=== PATIENT | female | born 1945 | race Caucasian/White ===

== ENCOUNTER 2019-08-27 18:20 | Emergency (ER) | payer MEDICARE ==
--- NOTE | 2019-08-27 18:43 | Emergency Department Record ---
History of Present Illness - General Stated Complaint: SHORTNESS OF BREATH Time Seen by Provider: 08/27/19 18:24 Source: Patient Mode of Arrival: Ambulatory Limitations: No limitations - History of Present Illness Initial Comments: 73 yo female presents to ED for evaluation of shortness of breath symptoms for the past 1 week. Patient reports history of atrial fibrillation, reports no reoccurrence following her last ablation with TCI. Patient denies fevers, chills, or productive cough symptoms, daughter however is concerned about possible PE. Patient denies history of PE, calf swelling, pain, or lower extremity edema on examination. Patient denies chest discomfort symptoms as well. Patient does not take anticoagulation medications currently. MD Complaint: Shortness of breath Onset/Timin -: Week(s) Consistency: Intermittent Improves With: Nothing Worsens With: Nothing Known History Of: Other (Atrial fibrillation) Associated Symptoms: Denies other symptoms - Related Data Home Oxygen Therapy: No Home Medications Medication Instructions Recorded Confirmed Last Taken Aspirin [Adult Low Dose Aspirin EC] 81 mg PO DAILY 08/27/19 08/27/19 08/27/19 Calcium Carbonate/Vitamin D3 1 each PO DAILY 08/27/19 08/27/19 08/27/19 [Calcium 250-D Tablet] Fenofibrate Nanocrystallized 160 mg PO 08/27/19 08/27/19 [Fenofibrate] Fexofenadine HCl [Meggan Allergy] 180 mg PO 08/27/19 08/27/19 Fluticasone Propionate [Flonase 08/27/19 08/27/19 Allergy Relief] Levothyroxine Sodium [Synthroid] 125 mcg PO 08/27/19 08/27/19 Lisinopril [Zestril] 20 mg PO DAILY 08/27/19 08/27/19 08/27/19 Montelukast Sodium [Singulair] 10 mg PO QHS 08/27/19 08/27/19 08/27/19 Multivitamin [One Daily 1 each PO DAILY 08/27/19 08/27/19 08/27/19 Multivitamin] [place]-3 Fatty Acids/Fish Oil [Fish 08/27/19 08/27/19 Oil 1,000 mg Capsule] Omeprazole [Prilosec] 20 mg PO DAILY 08/27/19 08/27/19 08/27/19 Pramipexole Di-HCl [Mirapex] 0.5 mg PO 08/27/19 08/27/19 Ubidecarenone [Co Q-10] 200 mg PO 08/27/19 08/27/19 Allergies Allergy/AdvReac Type Severity Reaction Status Date / Time codeine Allergy HIVES Verified 08/27/19 18:49 Review of Systems Constitutional: Denies: Chills, Fever, Malaise, Night sweats Eyes: Denies: Eye discharge, Eye pain ENT: Denies: Congestion, Ear pain, Epistaxis Respiratory: Reports: Dyspnea. Denies: Cough, Stridor, Wheezes Cardiovascular: Denies: Chest pain, Dyspnea on exertion, Palpitations Endocrine: Denies: Fatigue, Heat or cold intolerance Gastrointestinal: Denies: Abdominal pain, Nausea, Vomiting Genitourinary: Denies: Incontinence, Retention Musculoskeletal: Denies: Arthralgia, Back pain Skin: Denies: Bruising, Change in color Neurological: Denies: Abnormal gait, Confusion, Headache, Tingling, Tremors Psychiatric: Denies: Anxiety Hematological/Lymphatic: Denies: Anemia, Blood Clots, Easy bleeding, Easy bruising Physical Exam - General General Appearance: Alert, Oriented x3, Cooperative, No acute distress Limitations: No limitations - Head Head exam: Atraumatic, Normocephalic, Normal inspection Head exam detail: negative: Abrasion, Contusion, Lee's sign, General tenderness, Hematoma, Laceration - Eye Eye exam: Normal appearance. negative: Conjunctival injection, Periorbital swelling, Periorbital tenderness, Scleral icterus - ENT Ear exam: negative: Auricular hematoma, Auricular trauma Nasal Exam: negative: Active bleeding, Discharge, Dried blood, Foreign body Mouth exam: negative: Drooling, Laceration, Muffled voice, Tongue elevation - Neck Neck exam: Normal inspection. negative: Meningismus, Tenderness - Respiratory Respiratory exam: Normal lung sounds bilaterally. negative: Respiratory distress, Rhonchi, Stridor, Wheezes - Cardiovascular Cardiovascular Exam: Regular rate, Normal rhythm, Normal heart sounds - GI/Abdominal GI/Abdominal exam: Soft. negative: Distended, Rebound, Rigid, Tenderness - Rectal Rectal exam: Deferred - exam: Deferred - Extremities Extremities exam: Normal inspection. negative: Pedal edema, Tenderness - Back Back exam: Denies: CVA tenderness (R), CVA tenderness (L) - Neurological Neurological exam: Alert, Normal gait, Oriented X3 - Psychiatric Psychiatric exam: Normal affect, Normal mood - Skin Skin exam: Normal color. negative: Abrasion Type of lesion: negative: abrasion Course - Reevaluation(s) Reevaluation #1: 08/27/19 19:12 EKG: NSR 74 LAD, normal intervals No acute ST-T wave changes Reevaluation #2: 08/27/19 19:48 Laboratory studies were reviewed and appear grossly unremarkable for an acute process except for the following: D-Dimer 3.94 BNP 844 Reevaluation #3: 08/27/19 20:49 CTA Chest: Extensive bilateral PE with right ventricular strain [facility] 1-call contacted for transfer. Heparin 6100 unite bolus ordered to be followed by 1400 units/hr. Patient and her daughter were updated on all results as well as the need for transfer for 2-D echo and likely SDU admission. Reevaluation #4: 08/27/19 21:04 Case was discussed with Dr. Aguirre, will accept patient for transfer and further evaluation. Medical Decision Making - Lab Data Result diagrams: 08/27/19 19:15 08/27/19 19:15 Critical Care Time Critical Care Time: Yes Total Critical Care Time: 45 Critical Care Time: Diagnosis and treatment of PE EKG interpretation Laboratory study interpretation CTA review and discussion with radiologist Updates and reassessments of the patient/daughter at the bedside Consultation with [facility] Hospitalist for transfer and admission. Disposition Disposition: Transfer Clinical Impression: Pulmonary emboli Qualifiers: Pulmonary embolism type: unspecified Chronicity: acute Acute cor pulmonale presence: unspecified Qualified Code(s): I26.99 - Other pulmonary embolism without acute cor pulmonale Disposition: [facility] Transfer Transfer To: [facility] Reason For Transfer: 2-D Echo, SDU admission Accepting Physician: Carla Time Discussed w/Accepting Physician: 21:05 Condition: (2) Stable Time of Disposition: 21:05 Quality - Quality Measures Quality Measures: N/A - Blood Pressure Screening Does Patient Have Any of the Following: No Blood Pressure Classification: Pre-Hypertensive BP Reading Systolic Measurement: 129 Diastolic Measurement: 89 Screening for High Blood Pressure: < Pre-Hypertensive BP, F/U Documented > [G8950] Pre-Hypertensive Follow-up Interventions: Referral to alternative/primary care provider.
[2019-08-27 19:23] LABS: ABSOLUTE NEUTROPHIL COUNT 5.31; BASO % 0.4 % (0-6); EOS % 2.9 % (0-6); GRAN % 62.5 % (47-80); HEMATOCRIT 39.1 % (35.0-47.0); HEMOGLOBIN 12.5 gm/dl (11.6-16.0); LYMPH % 22.9 % (16-45); MEAN CELL VOLUME 87.3 fl (81-97); MEAN CORPUSCULAR HEMOGLOBIN 27.9 pg (27-33); MEAN PLATELET VOLUME 10.7 fl (7.4-10.4); MONO % 11.3 % (0-9); PLATELET COUNT 315 K/uL (130-400); RED BLOOD COUNT 4.48 M/uL (3.80-5.40); RED CELL DISTRIBUTION WIDTH 14.9 % (11.5-14.5); WHITE BLOOD COUNT W/O DIFF 8.5 K/uL (4.2-12.2)
[2019-08-27 19:36] LABS: BLOOD UREA NITROGEN 10 mg/dL (8-23); CREATININE 0.7 mg/dL (0.5-0.9); EST GLOMERULAR FILTRATION RATE > 60 mL/min
[2019-08-27 19:37] LABS: TOTAL PROTEIN 7.4 g/dL (6.6-8.7)
[2019-08-27 19:39] LABS: GLUCOSE,RANDOM 108 mg/dL (74-109)
[2019-08-27 19:41] LABS: ALT/SGPT 23 U/L (<33)
[2019-08-27 19:42] LABS: ALB/GLOB RATIO 1.3 (1.1-1.8); ALBUMIN 4.2 g/dL (4.0-5.0); ALKALINE PHOSPHATASE 59 U/L (35-104); AST/SGOT 35 U/L (10.0-35.0)
--- NOTE | 2019-08-27 20:50 | CT ANGIOGRAM REPORT ---
EXAMINATION: CT Angiography of the Thorax EXAM DATE: 08/27/2019 8:31 PM TECHNIQUE: Standard protocol CT angiogram images were obtained through the chest following the admini stration of intravenous contrast. Coronal and sagittal MIP 3-D reformations were performed. IV Contrast: The amount and type of contrast are recorded in the medical record. INDICATION: SOB. COMPARISON: None ENCOUNTER: Not applicable FINDINGS: Good opacification of pulmonary vessels. Extensive bilateral pulmonary emboli, involving segmental an d subsegmental arteries in each lobe. Suspect there is right ventricular strain. Normal thoracic aorta. Atherosclerotic calcification in the coronary arteries. No evidence of mediast inal or hilar adenopathy. No pleural fluid. There are a few small scattered calcified granulomas bilaterally. Patchy groundglass opacity in the l ower lobes, probably atelectasis. There is cholelithiasis. The upper abdomen is otherwise unremarkable. Spurring in the spine. Old left rib fractures. IMPRESSION: Extensive bilateral pulmonary emboli. Suspect there is right ventricular strain. A Red Critical Result was communicated to Dr. Reyes at 08/27/2019 8:48 PM. Dictated by: Sacha Singleton MD on 08/27/2019 8:31 PM. .
[2019-08-27] MEDS ORDERED: HEPARIN SODIUM 1000 UNIT/1 ML 10ML VIAL IVP ONE (20:58)
[2019-08-27] MEDS ORDERED: HEPARIN SODIUM/D5W 25,000 UNITS/500 ML BAG IV SCH (21:00)
== END 2019-08-27 21:49 | disposition short-term general hospital (02) ==
LOC: ER 18:20
DX: I26.99 Other pulmonary embolism without acute cor pulmonale (principal); R79.89 Other specified abnormal findings of blood chemistry; I48.91 Unspecified atrial fibrillation; I10 Essential (primary) hypertension
CPT/HCPCS: 99291 ×2; 96375; 96365; 85025; 80053; 84484; 85379; 83880; 71275; 93005; 93010; Q9967